=== PATIENT | male | born 1965 | race Caucasian/White ===

== ENCOUNTER 2021-10-14 16:46 | Emergency (ER) | payer BC, SELFPAY ==
[2021-10-14 16:57] VITALS: BP 140/89; PULSE 64; RESP 16; TEMP 36.3; O2SAT 100
--- NOTE | 2021-10-14 17:06 | PC.NURSE ---
Finger soaking in hydrogen peroxide per MARTINE Drake.
--- NOTE | 2021-10-14 17:08 | ED.UPPEXIN ---
HPI - Extremity Injury (Upper) General Chief Complaint: Extremity Injury, Upper Stated Complaint: Right Thumb Pain Time Seen by Provider: 10/14/21 17:08 Source: patient, RN notes reviewed and old records reviewed Mode of arrival: ambulatory Limitations: no limitations History of Present Illness HPI narrative: 55-year-old male who presents to [facility] with complaints of possible foreign body to the proximal palmar aspect of his right thumb. Patient states on Sunday he was pulling weeds and got a hold of a piece of stick with part of it going into his thumb. He states he did remove a small portion of a piece of wood from his finger but it feels like there is still a portion left in there and he has had some pustular drainage from his thumb today with pain and swelling and redness, is tender to palpation. Patient denies any fevers, chills or sweats. MD complaint: injury to: finger (right thumb) Onset (ago): day(s) (2) Severity scale (1-10): 3 Related Data Allergies Allergy/AdvReac Type Severity Reaction Status Date / Time No Known Allergies Allergy Verified 10/14/21 17:00 Review of Systems Review of Systems: CONSTITUTIONAL: Denies fever, chills, or sweats. EYES: Denies visual changes, redness, or discharge. ENT: Denies rhinorrhea, congestion, sore throat, or otalgia. CARDIOVASCULAR: Denies chest pain, palpitations, or edema. RESPIRATORY: Denies cough or dyspnea. GASTROINTESTINAL: Denies abdominal pain, nausea, vomiting, or diarrhea. GENITOURINARY: Denies dysuria or hematuria. SKIN: Denies rash or itching.positive for pain swelling to distal wang aspect right thumb with pustular drainage possible foreign body MUSCULOSKELETAL: Denies back pain, joint pain, or myalgia. NEUROLOGIC: Denies headache, numbness, or weakness. PSYCHIATRIC: Denies anxiety or depression. 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 There is no relevant family history pertinent to the presenting complaint Exam Narrative: GENERAL: Well-appearing, well-nourished, and in no acute distress. HEAD: Normocephalic, atraumatic. EYES: PERRLA and EOMI. ENT: Nares clear, no rhinorrhea or epistaxis. Mucous membranes moist.TM's normal with good light reflex, throat pink with no lesions or swelling, no tonsils present NECK: Supple.no lymphadenopathy CHEST: Clear to auscultation. No respiratory distress. HEART: Regular rate and rhythm. No murmur heard. Normal peripheral pulses. ABDOMEN: Soft, nontender, nondistended, normal active bowel sounds. EXTREMITIES: Normal range of motion. No edema. SKIN: Warm, dry, no rash.Swelling with redness and discomfort to right wang distal thumb with pustular drainage, full ROM circulation and sensation present. NEURO: No focal deficits. Alert and oriented x3. Course Course Level of Care: Express Care Visit Vital Signs Vital signs: Vital Signs Temperature 36.3 C L 10/14/21 16:57 Pulse Rate 64 10/14/21 16:57 Respiratory Rate 16 10/14/21 16:57 Blood Pressure 140/89 10/14/21 16:57 Pulse Oximetry 100 10/14/21 16:57 Oxygen Delivery Room Air 10/14/21 16:57 Temperature 36.3
== END 2021-10-14 17:55 | disposition home or self-care (01) ==
PROVIDERS: Emergency Provider Registered Nurse; PCP Family Medicine Sports Medicine
DX: S61.041A Puncture wound with foreign body of right thumb without damage to nail, initial encounter (principal); W45.8XXA Other foreign body or object entering through skin, initial encounter; Z87.891 Personal history of nicotine dependence; Z86.16 Personal history of COVID-19
CPT/HCPCS: 10120; 99213; A9270; G0463

== ENCOUNTER 2024-12-29 12:47 | Outpatient (CLI) | payer BC, SELFPAY ==
--- NOTE | ~2024-12-29 | CT_ITS ---
EXAMINATION:CT lung screening DATE: 12/29/2024 13:06 INDICATION: Personal history of nicotine dependence. TECHNIQUE: Computed tomography (CT) of the chest was performed without intravenous contrast. Automated exposure control and iterative reconstruction technique were employed. The dose-length product (DLP) was 121.48 mGy-cm. COMPARISON: None. FINDINGS: There is minimal atelectasis in the lungs. Calcified right lung nodules are consistent with old granulomatous disease. There are a few scattered nodules in the lungs measuring up to 5 mm. No pleural effusion. The heart size is normal. No pericardial effusion. There is mild thoracic spondylosis. There is a sclerotic lesion in left 7th rib. IMPRESSION: 1. Lung-RADS category 2S: Benign appearance or behavior. Continue annual screening with noncontrast low-dose chest CT in 12 months. 2. Sclerotic lesion in left seventh rib, which may be a benign bone island or less likely metastatic disease. Consider a bone scan. Reviewed, dictated and finalized at location [facility] IMPRESSION: 1. Lung-RADS category 2S: Benign appearance or behavior. Continue annual screen ing with noncontrast low-dose chest CT in 12 months. 2. Sclerotic lesion in left seventh rib, which may be a benign bone island or l ess likely metastatic disease. Consider a bone scan.
== END 2024-12-29 12:48 | disposition home or self-care (01) ==
LOC: MICIMG 12:48
PROVIDERS: PCP Family Medicine; Visit Provider Family Medicine
DX: Z12.2 Encounter for screening for malignant neoplasm of respiratory organs (principal); Z87.891 Personal history of nicotine dependence
CPT/HCPCS: 71271